=== PATIENT | male | born 1960 | race Caucasian/White ===

== ENCOUNTER 2018-07-14 19:12 | Outpatient (CLI) | payer MEDICAID | END 2018-07-14 19:13 | disposition home or self-care (01) | LOC: C.SLEEP 19:13 | DX: G47.33 Obstructive sleep apnea (adult) (pediatric) (principal) ==

== ENCOUNTER 2018-09-01 20:34 | Outpatient (CLI) | payer MEDICAID | END 2018-09-01 20:35 | disposition home or self-care (01) | LOC: C.SLEEP 20:35 | DX: G47.33 Obstructive sleep apnea (adult) (pediatric) (principal) ==